=== PATIENT | female | born 1990 | race African-American/Black ===

== ENCOUNTER → 2020-04-17 | Outpatient (CLI) | payer BC | LOC: ULTRA 08:28 | DX: R10.33 Periumbilical pain (principal) ==

== ENCOUNTER → 2020-07-07 | Outpatient (CLI) | payer BC | LOC: LAB 08:54 | PROVIDERS: ATTEND Nurse Practitioner | DX: U07.1 COVID-19 (principal) ==

== ENCOUNTER → 2020-08-09 | Outpatient (CLI) | payer BC ==
[~2020-08-09] MED LIST: HYDROCHLOROTHIA25 M2 PO; LISINOPRIL40 MG PO; LORCET 5-325 M1 EACH PO
== END ==
LOC: LAB 07:17
PROVIDERS: ATTEND Surgery
DX: Z01.812 Encounter for preprocedural laboratory examination (principal); Z20.828 Contact with and (suspected) exposure to other viral communicable diseases

== ENCOUNTER 2020-08-11 14:25 | Day surgery (SDC) | payer BC ==
[~2020-08-11] VITALS: Ht 157.5 cm; Wt 57.6 kg
--- NOTE | ~2020-08-11 | O ---
[facility] [place] [address] [place] [address] OPERATIVE REPORT Name: SHIVANI CASTANEDA Room #: DEP [facility]..#: [id number] Admission: 08/11/20 Attend Phys: Dontrell Boyle MD Discharge: 08/11/20 Date of : 86 Report #: [id number] THIS REPORT FOR: cc: Dixie Carcamo DNP, Mary E. DNP Chu, Peter Y. MD ~ CC: Dixie Boyle DATE OF SERVICE: 08/11/2020 PREOPERATIVE DIAGNOSIS: Cystic lesion in the umbilicus, possible urachal remnant cyst. POSTOPERATIVE DIAGNOSIS: Umbilical hernia with fluid filled sac. PROCEDURES PERFORMED: Exploration of the umbilical cystic lesion and repair of umbilical hernia. SURGEON: Dontrell Boyle MD ANESTHESIA: General anesthesia. COMPLICATIONS: None. ESTIMATED BLOOD LOSS: 5 mL. DESCRIPTION OF PROCEDURE: The patient was under general anesthesia. Abdomen was prepped and draped in sterile fashion. Timeout was performed. Preoperative IV antibiotic was administered. A 0.25% Marcaine was used to anesthetize the skin. Curvilinear incision was made infraumbilically. The umbilical skin is not very deep and this was lifted off the fascia without difficulty. The lesion was identified and once the lesion was isolated, it decompressed, the fluid dissipated. At this point, the lesion was then isolated followed posteriorly down into the level of the fascia. The tail of it did seem to go under the fascia. The fascia was opened inferiorly. The posterior aspect of the cystic tail led to the peritoneal cavity. This is connected to the peritoneum. Nothing was found in the properitoneal space. This is consistent with a hernia sac. Using a right angle probe, the sac from inside and it did go into the part of the lesion that was palpable and felt to be the cyst. I think this is atypical for hernia. I think because of the sac the neck of the hernia sac is quite small, so the only thing that was able to get into it is fluid. The fluid likely with time enlarged the sac. The sac was trimmed off and sent to pathology. The fascia edges were cleaned off. The fascia was then closed with rnkgla-dt-enuov 0 PDS x 3. Skin of the umbilicus was then sewn down to the [facility] [address] [place] [address] OPERATIVE REPORT Name: CARINA CASTANEDA Room #: DEP [facility].#: [id number] Admission: 08/11/20 Attend Phys: Dontrell Boyle MD Discharge: 08/11/20 Date of : 86 Report #: [id number] fascia. Irrigation was performed. Skin was closed with 5-0 PDS. Steri-Strip, 4 x 4, OpSite was applied. The patient was awakened and taken to recovery room, tolerated the procedure well. By: 1112 1129 Dontrell Boyle MD /nt
[~2020-08-11 14:25] MED LIST changes: -LORCET 5-325 M1 EACH PO
--- NOTE | 2020-08-11 15:18 | EKG ---
[facility] [place] [address] [place] [address] ELECTROCARDIOGRAM REPORT Name: SHIVANI CASTANEDA Room #: [address] M.R.#: [id number] Admission: 08/11/20 Attend Phys: Dontrell Boyle MD Discharge: Date of : 86 Report #: [id number] THIS REPORT FOR: cc: Dixie Carcamo DNP, Mary E. DNP Couchonnal, Luis F. MD ~ THIS REPORT FOR: //name// [facility] Test Date: 2020-08-11 Test Time: 14:51:52 Pat Name: SHIVANI CASTANEDA Department: Room: 150 Gender: F Associate Director Of Sales: JW : 1990 Requested By: Dontrell Boyle Order Number: [id number] : Wale Pappas Measurements Intervals Closplint Rate: 62 P: -40 MI: 158 QRS: 58 QRSD: 91 T: 39 QT: 409 QTc: 416 Interpretive Statements Sinus rhythm No previous ECG available for comparison Electronically Signed On 08-11-2020 15:17:53 CDT by Wale Pappas [email or web address] <ELECTRONICALLY SIGNED> By: Wale Pappas MD 08/11/20 1517 50 50 Wale Pappas MD /SHAWN
[2020-08-11 15:29] VITALS: BP 148/94
[2020-08-11] MEDS ORDERED: LORCET 5-325 M1 EACH PO (17:37)
[2020-08-11 18:08] VITALS: BP 148/94
--- NOTE | 2020-08-15 17:07 | PATH ---
[facility] [address] [place] [address] PATHOLOGY RPT PROCEDURE Name: LINETTE GONCALVES Room #: DEP [facility] M.R.#: [id number] Admission: 08/11/20 Date of : 86 Discharge: 08/11/20 Report #: [id number] Path Case #: [id number] [facility] Accession Number: [id number] . 01 Material submitted: . hernia - HERNIA SAC . 01 Clinical history: . CYST IN UMBILICUS . 02 Diagnosis: Fibrovascular connective tissue, hernia sac, repair: - Consistent with a hernia sac. - Mild acute and chronic inflammation along with reactive changes. (IUV:pit 08/15/2020) QTP 08/15/2020 1533 Local . 02 Electronically signed: . Kendy Meza MD, Pathologist NPI- [id number] . 01 Gross description: . The specimen is received in formalin, labeled "Linette Goncalves, hernia sac". Received is a segment of fibroadipose tissue measuring 2.1 x 1.3 x 1.0 cm in greatest dimensions. No distinct nodules or lesions are noted grossly. The specimen is bisected and entirely submitted in cassette A1. (CAA; 08/14/2020) QAC/QA 08/14/2020 1129 Local . 02 Pathologist provided ICD-10: K42.9 . 02 CPT . 040048 Specimen Comment: A courtesy copy of this report has been sent to [phone] Specimen Comment: [phone] Specimen Comment: Report sent to / DR GALVEZ Performed at: [address], [place], [place] [id number] MD Wilver New MD Phone: [phone] Performed at: [address] [id number] MD Kendy Meza MD Phone: [phone]
== END 2020-08-11 18:35 | disposition home or self-care (01) ==
LOC: OR 14:25 → TBA 14:25 → OR 18:35
PROVIDERS: ATTEND Surgery
DX: K42.9 Umbilical hernia without obstruction or gangrene (principal); I10 Essential (primary) hypertension; Z98.890 Other specified postprocedural states; Z79.899 Other long term (current) drug therapy
CPT/HCPCS: 50010; 50101; 50386; 50417; 56525; 56526; 62110; 62900; 70005

== ENCOUNTER → 2021-01-24 | Outpatient (CLI) | payer BC ==
[~2021-01-24] MED LIST changes: +LORCET 5-325 M1 EACH PO
== END ==
LOC: LAB 09:06
PROVIDERS: ATTEND Nurse Practitioner
DX: R05 Cough (principal); R09.3 Abnormal sputum; Z20.822 Contact with and (suspected) exposure to COVID-19

== ENCOUNTER → 2021-06-18 | Outpatient (CLI) | payer BC | LOC: ULTRA 09:33 | PROVIDERS: ATTEND Nurse Practitioner | DX: N92.1 Excessive and frequent menstruation with irregular cycle (principal) ==